=== PATIENT | male | born 1945 | race Caucasian/White ===

== ENCOUNTER 2018-03-03 23:41 | Inpatient (IN) ==
[2018-03-04] MEDS ORDERED: Ondansetron 4 MG/2 ML VIAL IVP ONE (00:01)
[2018-03-04] MEDS ORDERED: 0.9 % Sodium Chloride 1,000 ML IVC ONE (00:01)
[2018-03-04 00:33] LABS: Basophils % 0.3 %; Eosinophils # 0.2 K/mcL (0.0-0.6); Eosinophils % 2.4 %; Hematocrit 27.8 % (37.5-50.1); Hemoglobin 9.2 g/dL (12.9-16.9); Immature Granulocytes % 0.6 % (0-4); Lymphocytes # 0.6 K/mcL (0.6-4.6); Lymphocytes % 9.2 %; Mean Corpuscular HGB Conc 33.1 g/dL (31.6-35.5); Mean Corpuscular Hemoglobin 26.9 pg (28.0-33.3); Mean Corpuscular Volume 81.3 fL (83.0-100.0); Mean Platelet Volume 9.1 fL (9.4-12.4); Monocytes # 0.4 K/mcL (0.0-1.3); Monocytes % 5.5 %; Neutrophils # 5.5 K/mcL (1.6-8.9); Platelet Count 181 K/mcL (140-400); Red Blood Count 3.42 M/mcL (4.19-5.50); Red Cell Distribution Width 15.4 % (11.5-14.5)
[2018-03-04 00:43] LABS: Bilirubin,Urine Negative (Negative); Blood,Urine Negative (Negative); Clarity,Urine Clear (Clear); Glucose,Urine (UA) Normal (Normal); Ketones,Urine 40 mg/dL (Negative); Leukocyte Esterase,Urine Negative (Negative); Nitrite,Urine Negative (Negative); Protein,Urine Negative (Neg-Trace); Specific Gravity,Urine 1.025 (1.010-1.025); Urobilinogen,Urine Normal (Normal)
[2018-03-04 00:44] LABS: Color,Urine Light Yellow (Yellow)
[2018-03-04 00:56] LABS: Alanine Aminotransferase 13 Units/L (7-52); Albumin/Globulin Ratio 1.3 (1.1-2.2); Alkaline Phosphatase 84 Units/L (34-104); Aspartate Amino Transferase 19 Units/L (13-39); BUN/Creatinine Ratio 29 (6-26); Bilirubin,Direct 0.1 mg/dL (0.0-0.2); Bilirubin,Indirect 0.4 mg/dL (0.0-1.2); Bilirubin,Total 0.5 mg/dL (0.3-1.0); Blood Urea Nitrogen 20 mg/dL (8-23); Calcium 9.1 mg/dL (8.6-10.3); Carbon Dioxide 25 mEq/L (23-29); Chloride 87 mEq/L (98-107); Globulin 3.1 g/dL (2.4-3.5); Glucose 132 mg/dL (70-105); Osmolality,Calculated 254 (280-300); Potassium 4.5 mEq/L (3.5-5.1); Sodium 120 mEq/L (136-145); Total Protein 7.1 g/dL (6.4-8.9); Troponin I 0.04 ng/mL (< 0.04); eGFR For Non-African Americans > 60 (> 60)
--- NOTE | 2018-03-04 01:47 | Emergency Department Note ---
Disposition Clinical Impression: Acute hyponatremia Disposition: Admitted As Inpatient Condition: Fair Referrals: Annie Leary MD [Primary Care Provider] - Forms: ED Satisfaction Letter Time of Disposition: 03:29 Weakness HPI - General Chief complaint: ED Weakness Stated complaint: Weakness onset 2 days Time Seen by Provider: 03/03/18 23:56 Source: patient, family, EMS Mode of arrival: EMS Limitations: no limitations Nursing Notes Reviewed: Yes Vital Signs Reviewed: Yes - History of Present Illness Pt Subjective Complaint: generalized weakness/fatigue Onset (ago): day(s) (2 or 3 days) Duration: constant, gradually worsening Location: generalized Migration: none Pain Severity: none Pain Scale: 0 Improves with: none Worsens with: exertion Context: other (History of cancer, currently getting chemotherapy.) Associated symptoms: Reports: other (Patient notes some nausea. Otherwise denies any other symptoms.) - Related Data Home Medications Medication Instructions Recorded Confirmed Cabergoline 0.5 mg PO QWEEK 11/01/14 02/26/18 Lovastatin [Mevacor] 40 mg PO HS 11/01/14 02/26/18 Montelukast [Singulair] 10 mg PO DAILY 11/01/14 02/26/18 Metoprolol XL (24 HR) Succ [Toprol 25 mg PO DAILY 12/13/16 02/26/18 XL] Fluticasone Propionate Nasal 2 spray NS DAILY 05/06/17 02/26/18 [Flonase] Previous Rx's Medication Instructions Recorded Everolimus [Afinitor] 5 mg PO DAILY #30 tablet 01/31/18 Mupirocin [Bactroban Oint] 1 appl TP BID 7 Days tube 02/26/18 Sulfamethoxazole/Trimeth DS 1 each PO BID #14 tablet 02/26/18 [Bactrim DS] Allergies Allergy/AdvReac Type Severity Reaction Status Date / Time No Known Allergies Allergy Verified 02/26/18 11:50 All systems ED: reviewed and negative except as stated. Constitutional: Denies: fever, chills ENT ED: Denies: ear pain, throat pain, congestion Cardiovascular: Denies: chest pain Respiratory: Denies: dyspnea Gastrointestinal: Reports: nausea. Denies: abdominal pain, vomiting, diarrhea Musculoskeletal: Denies: back pain, neck pain Integumentary: Denies: rash Neurological: Reports: weakness (Generalized, nonfocal weakness). Denies: headache Past Medical History - Past Medical History Attestation: Yes The following information was validated with the patient. Source: patient, old records reviewed, obtained from family, nursing notes reviewed Medical history: Reports: cancer, hyperlipidemia, hypertension, other Surgical history: Reports: cancer surgery, cataract, herniorrhaphy, other Psychiatric history: Reports: no psych history - Social History Smoking Status: Never smoker Smokeless Tobacco Status: No Alcohol use: Reports: none Drug use: Reports: none Physical Exam - General Limitations: no limitations General appearance: alert, in no apparent distress - Head Head exam: atraumatic, normocephalic, normal inspection - Eye Eye exam: Present: normal appearance, PERRL, EOMI. Absent: scleral icterus, con junctival injection - ENT ENT exam: normal exam, normal oropharynx, mucous membranes moist, normal external ear exam - Neck Neck exam: Present: normal inspection, full ROM - Chest Chest inspection: Present: normal inspection, symmetric chest wall rise. Absent: tenderness - Respiratory Respiratory exam: Present: normal lung sounds bilaterally. Absent: respiratory distress, wheezes - Cardiovascular Cardiovascular exam: Present: regular rate, normal rhythm, normal heart sounds - Abdominal Exam Abdominal exam: Present: soft, Non-Tender, normal bowel sounds - Extremities Exam Extremities exam: Present: normal inspection. Absent: pedal edema - Neurological Exam Neurological exam: Present: alert, oriented X3. Absent: motor sensory deficit - Psychiatric Psychiatric exam: Present: normal affect, normal mood - Skin Skin exam: Present: warm, dry. Absent: rash Course Course Narrative: Patient presents with complaint of generalized weakness over the past couple of days. He has some nausea as well. He does not describe any other symptoms to point towards an infectious problem or other obvious issue. Physical examination does not point out anything either. There are no focal neurologic findings on physical examination. I suspect this to be a metabolic issue. Workup will be started. I will give him some IV fluids. Disposition will be based on diagnostic results and reevaluation. - Reevaluation(s) Reevaluation #1: Patient's sodium came back at 120. That certainly would explain generalized weakness. He is a lung cancer patient was taking oral chemotherapy agents. He will need to be admitted to the hospital. I will talk to the hospitalist here shortly. He did have a slight bump in his troponin at 0.04. I am not really sure the significance of that at this point. He will need to have his troponin is repeated. Time: 01:49 Reevaluation #2: Repeat troponin was still elevated but remained the same 0.04. So at this point I do not think this is cardiac cause of weakness I think that is all related to the hyponatremia. Poke with the hospitalist, Dr. Bermeo, and he is accepting the patient for admission to the hospital. Patient and family been made aware. Time: 03:28 - Consultations Consultation #1: Dr. Bermeo, hospitalist - I discussed case with the hospitalist. He is accepted the patient for admission. Time: 03:25 Vital Signs Temperature 97.9 F 03/03/18 23:45 Pulse Rate 81 03/03/18 23:45 Respiratory Rate 16 03/03/18 23:45 Blood Pressure 149/87 03/03/18 23:45 O2 Sat by Pulse Oximetry 98 03/03/18 23:45 Temperature 97.9 F 03/03/18 23:45 Pulse Rate 80 03/04/18 00:45 Respiratory Rate 16 03/04/18 00:45 Blood Pressure 154/81 03/04/18 00:45 O2 Sat by Pulse Oximetry 97 03/04/18 00:45 Oxygen Delivery Oxygen Delivery Room Air Weakness - Medical Records Medical records reviewed: Yes I reviewed the patient's medical records. - Lab Data Lab results reviewed: Yes I reviewed the patient's lab results. Result diagrams: 03/04/18 00:15 03/04/18 00:15 Lab Results 03/04/18 03/04/18 03/04/18 Range/Units 00:08 00:15 00:15 WBC 6.7 (4.3-11.1) K/mcL RBC 3.42 L (4.19-5.50) M/mcL Hgb 9.2 L (12.9-16.9) g/dL Hct 27.8 L (37.5-50.1) % MCV 81.3 L (83.0-100.0) fL MCH 26.9 L (28.0-33.3) pg MCHC 33.1 (31.6-35.5) g/dL RDW 15.4 H (11.5-14.5) % Plt Count 181 (140-400) K/mcL MPV 9.1 L (9.4-12.4) fL Immature Gran % 0.6 (0-4) % Seg Neutrophils % 82.0 % Lymphocytes % 9.2 % Monocytes % 5.5 % Eosinophils % 2.4 % Basophils % 0.3 % Neutrophils # 5.5 (1.6-8.9) K/mcL Lymphocytes # 0.6 (0.6-4.6) K/mcL Monocytes # 0.4 (0.0-1.3) K/mcL Eosinophils # 0.2 (0.0-0.6) K/mcL Basophils # 0.0 (0.0-0.2) K/mcL Sodium 120 L* (136-145) mEq/L Potassium 4.5 (3.5-5.1) mEq/L Chloride 87 L (98-107) mEq/L Carbon Dioxide 25 (23-29) mEq/L BUN 20 (8-23) mg/dL Creatinine 0.70 (0.70-1.30) mg/dL Est GFR ( Amer) > 60 (> 60) Est GFR (Non-Af Amer) > 60 (> 60) BUN/Creatinine Ratio 29 H (6-26) Glucose 132 H (70-105) mg/dL Calculated Osmolality 254 L (280-300) Lactic Acid (0.5-2.2) mmol/L Calcium 9.1 (8.6-10.3) mg/dL Total Bilirubin 0.5 (0.3-1.0) mg/dL Direct Bilirubin 0.1 (0.0-0.2) mg/dL Indirect Bilirubin 0.4 (0.0-1.2) mg/dL AST 19 (13-39) Units/L ALT 13 (7-52) Units/L Alkaline Phosphatase 84 (34-104) Units/L Troponin I 0.04 H* (< 0.04) ng/mL Serum Total Protein 7.1 (6.4-8.9) g/dL Albumin 4.0 (3.5-5.7) g/dL Globulin 3.1 (2.4-3.5) g/dL Albumin/Globulin Ratio 1.3 (1.1-2.2) Urine Color Light Yellow (Yellow) Urine Clarity Clear (Clear) Urine pH 7.0 (5.0-8.0) pH Units Ur Specific [place] 1.025 (1.010-1.025) Urine Protein Negative (Neg-Trace) mg/dL Urine Glucose (UA) Normal (Normal) mg/dL Urine Ketones 40 H (Negative) mg/dL Urine Blood Negative (Negative) Urine Nitrite Negative (Negative) Urine Bilirubin Negative (Negative) Urine Urobilinogen Normal (Normal) mg/dL Ur Leukocyte Esterase Negative (Negative) Ur Culture Indicated? NO (NO) 03/04/18 03/04/18 Range/Units 00:25 02:45 WBC (4.3-11.1) K/mcL RBC (4.19-5.50) M/mcL Hgb (12.9-16.9) g/dL Hct (37.5-50.1) % MCV (83.0-100.0) fL MCH (28.0-33.3) pg MCHC (31.6-35.5) g/dL RDW (11.5-14.5) % Plt Count (140-400) K/mcL MPV (9.4-12.4) fL Immature Gran % (0-4) % Seg Neutrophils % % Lymphocytes % % Monocytes % % Eosinophils % % Basophils % % Neutrophils # (1.6-8.9) K/mcL Lymphocytes # (0.6-4.6) K/mcL Monocytes # (0.0-1.3) K/mcL Eosinophils # (0.0-0.6) K/mcL Basophils # (0.0-0.2) K/mcL Sodium (136-145) mEq/L Potassium (3.5-5.1) mEq/L Chloride (98-107) mEq/L Carbon Dioxide (23-29) mEq/L BUN (8-23) mg/dL Creatinine (0.70-1.30) mg/dL Est GFR ( Amer) (> 60) Est GFR (Non-Af Amer) (> 60) BUN/Creatinine Ratio (6-26) Glucose (70-105) mg/dL Calculated Osmolality (280-300) Lactic Acid 1.5 (0.5-2.2) mmol/L Calcium (8.6-10.3) mg/dL Total Bilirubin (0.3-1.0) mg/dL Direct Bilirubin (0.0-0.2) mg/dL Indirect Bilirubin (0.0-1.2) mg/dL AST (13-39) Units/L ALT (7-52) Units/L Alkaline Phosphatase (34-104) Units/L Troponin I 0.04 H* (< 0.04) ng/mL Serum Total Protein (6.4-8.9) g/dL Albumin (3.5-5.7) g/dL Globulin (2.4-3.5) g/dL Albumin/Globulin Ratio (1.1-2.2) Urine Color (Yellow) Urine Clarity (Clear) Urine pH (5.0-8.0) pH Units Ur Specific [place] (1.010-1.025) Urine Protein (Neg-Trace) mg/dL Urine Glucose (UA) (Normal) mg/dL Urine Ketones (Negative) mg/dL Urine Blood (Negative) Urine Nitrite (Negative) Urine Bilirubin (Negative) Urine Urobilinogen (Normal) mg/dL Ur Leukocyte Esterase (Negative) Ur Culture Indicated? (NO) - Radiology Data Radiology results reviewed: Yes I reviewed the patient's radiology results. - EKG Data EKG attestation: Yes I reviewed and interpreted this EKG. EKG results narrative: Twelve-lead EKG performed at 20 3:52 PM. Ordered, reviewed and interpreted by ED physician showed sinus rhythm at a rate of 82. Normal axis. Good hour progression across precordium. No acute ischemic changes. Intervals are within normal limits.
[2018-03-04] MEDS ORDERED: Naloxone 0.4 MG/ML INJ IVP PRN (04:11)
[2018-03-04] MEDS: 0.9 % Sodium Chloride 1,000 ML IVC SCH ×2 (04:42→16:58)
[2018-03-04] MEDS: Metoprolol XL (24 HR) Succ 25 MG TAB.ER.24H PO SCH (08:27)
[2018-03-04] MEDS: Everolimus [Afinitor] 5 MG PO SCH (08:31)
[2018-03-04] MEDS: Fluticasone Propionate Nasal 50 MCG/SPRAY BOTTLE NS SCH (09:34)
--- NOTE | 2018-03-04 12:09 | Internal Med History&Physical ---
Date of Encounter: 03/04/18 Time of Encounter: 11:20 Assessment and Plan (1) Hyponatremia Current visit: Yes Status: Acute Possibly due to SIADH from pneumonia and/or malignancy. IV normal saline has been started. Labs will be monitored. (2) Microcytic anemia Current visit: Yes Status: Acute Anemia testing will be ordered. (3) Weakness Current visit: Yes Status: Acute PT and OT evaluations have been ordered. (4) Carcinoid tumor determined by biopsy of lung Current visit: No Status: Acute Chest CT will be done to monitor nodule progression and evaluate for pneumonia. Internal Medicine - H&P: HPI Chief complaint: Weakness, hyponatremia Admitted From: Emergency Dept Plans for Post Hospital Care: Home History of present illness: Mr. Romero is a 72 year old male who came to emergency room stating he had progressive weakness over the past 3 days. He reports while in the bathroom the evening prior to admission he became weak and gently let himself down to the floor. He was able to crawl from the bathroom to his bedroom and phone for help. He was brought to emergency room where evaluation showed significant hyponatremia and anemia. He was admitted to [facility] for ongoing care needs. He is hard of hearing and has a slight speech impediment. 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 He had XRT April and May 2014 and is felt to be in remission. He has been diagnosed with adenocarcinoma the prostate and is on Lupron injection every 3 months. He has metastatic atypical carcinoid of the lungs that is being treated by oncologist at [facility]. He has not responded significantly to attempted treatment for this. He has anemia that has progressively worsened in the past 3 months. Past Med Surg Social Fam HX - Past Medical History Medical history: cancer, hyperlipidemia, hypertension, other Additional medical history: MULTIPLE PULMONARY NODULES, cancer skin, throat, ton jocelyn, lung, prostate Psychiatric history: no psych history - Past Surgical History Surgical History: cancer surgery, cataract, herniorrhaphy, other Additional surgical history: colonoscopy, peg tube placement - Social History Smoking Status: Never smoker Smokeless Tobacco Status: No Alcohol use: none Drug use: none Internal Medicine - H&P: Meds Cabergoline 0.5 mg PO QWEEK 11/01/14 [History] Lovastatin [Mevacor] 40 mg PO HS 11/01/14 [History] Montelukast [Singulair] 10 mg PO DAILY 11/01/14 [History] Metoprolol XL (24 HR) Succ [Toprol XL] 25 mg PO DAILY 12/13/16 [History] Fluticasone Propionate Nasal [Flonase] 2 spray NS DAILY 05/06/17 [History] Everolimus [Afinitor] 5 mg PO DAILY #30 tablet 01/31/18 [Rx] Mupirocin [Bactroban Oint] 1 appl TP BID 7 Days tube 02/26/18 [Rx] Sulfamethoxazole/Trimeth DS [Bactrim DS] 1 each PO BID #14 tablet 02/26/18 [Rx] Allergy/AdvReac Type Severity Reaction Status Date / Time No Known Allergies Allergy Verified 02/26/18 11:50 All Systems PM: A 10-system review of systems was performed and is negative for pertinent findings except as documented above in the HPI. Review of systems: Gen.: He reports his weight has decreased approximately 25 pounds in the past year Cardiovascular: He has history of hypertension but denies TN heart failure angina DVT or pulmonary embolus Respiratory: He smoked from age [age] but denies chronic lung disease. He has metastatic atypical carcinoid in his lungs as per history of present illness. He does not use home oxygen. GI: He denies disorders of his liver gallbladder or exocrine pancreas : He had prostate CA as per history of present illness. He has frequent urination. He denies other kidney or bladder disorders. Neurologic: He denies known large distribution strokes or seizures. Endocrine: He has hyperlipidemia but denies diabetes or thyroid disease Hematology/oncology: As per history of present illness Psychiatric: He has feelings of depression but does not take medication at this time. He denies anxiety or other mental health issues. [place] skeletal: He has DJD and has had migratory arthralgias occasionally in the past few weeks. He denies gout - Constitutional Vitals: Temp Pulse Resp BP Pulse Ox 97.7 F 77 14 128/69 97 03/04/18 10:00 03/04/18 10:00 03/04/18 10:00 03/04/18 10:00 03/04/18 10:00 Exam: Gen.: He is a well-developed well-nourished male lying in bed who appears in no severe distress at present time HEENT: Head is atraumatic and normocephalic. Eyes: EOMI. There is no scleral icterus. Mouth: Mucosa is moist. Neck: He has surgical scar in his left neck from previous radical neck dissection. There is no thyromegaly or adenopathy noted. Heart: Regular without murmurs gallops or ectopics Lungs: No wheezes or crackles are heard. Abdomen: Soft and nontender. No masses or guarding are noted. A scar is in place in the left epigastric area from previous G-tube placement. Extremities: There is no cyanosis edema or clubbing noted. Dorsalis pedis and posterior tibial pulses are trace to 1+ palpable bilaterally. Neurologic: Mental status: He is talkative and able to answer most questions appropriately. He is hard of hearing. Cranial nerves: He has flattening of the right nasolabial fold and decreased movement of his right facial muscles inc luding the forehead. Left side of the face moves normally. Tongue is deformed from previous cancer surgery. EOMI. Motor: There is no pronator drift. Cerebellar: Finger to nose is intact bilaterally. Skin: Pale but warm and dry. Internal Med - H&P Results - Labs CBC & Chem 7: 03/04/18 00:15 03/04/18 00:15 Labs: Short CBC 03/04/18 Range/Units 00:15 WBC 6.7 (4.3-11.1) K/mcL Hgb 9.2 L (12.9-16.9) g/dL Hct 27.8 L (37.5-50.1) % Plt Count 181 (140-400) K/mcL Neutrophils # 5.5 (1.6-8.9) K/mcL BMP 03/04/18 00:15 Sodium 120 L* Potassium 4.5 Chloride 87 L Carbon Dioxide 25 BUN 20 Creatinine 0.70 Glucose 132 H Calcium 9.1 Cardiac Enzymes 03/04/18 03/04/18 03/04/18 Range/Units 00:15 02:45 08:53 Troponin I 0.04 H* 0.04 H* 0.06 H* (< 0.04) ng/mL Liver Function 03/04/18 Range/Units 00:15 Total Bilirubin 0.5 (0.3-1.0) mg/dL Direct Bilirubin 0.1 (0.0-0.2) mg/dL AST 19 (13-39) Units/L ALT 13 (7-52) Units/L Alkaline Phosphatase 84 (34-104) Units/L Albumin 4.0 (3.5-5.7) g/dL Urine 03/04/18 Range/Units 00:08 Urine Color Light Yellow (Yellow) Urine Clarity Clear (Clear) Urine pH 7.0 (5.0-8.0) pH Units Ur Specific [place] 1.025 (1.010-1.025) Urine Protein Negative (Neg-Trace) mg/dL Urine Glucose (UA) Normal (Normal) mg/dL - Impressions ITS Impressions Chest X-Ray 03/04/18 00:01 IMPRESSION: Progressive metastatic disease. The focal opacity in the mid left lung could represent the patient's primary malignancy or pneumonia. D/ / Mauri Arnold MD / Mauri Arnold MD Interpreting Provider: Mauri Arnold MD
[2018-03-04] MEDS ORDERED: Gadolinium Contrast Agent (WT Based) IV PRN (15:18)
[2018-03-05] MEDS ORDERED: *HR* LORazepam 2 MG/ML VIAL IVP PRN (01:29)
--- NOTE | 2018-03-05 02:56 | Internal Med Progress Note ---
Hospitalist Progress Note - Encounter Date of Encounter: 03/04/18 Time of Encounter: 23:45 - Exam Vitals: Temp Pulse Resp BP Pulse Ox 97.9 F 83 16 144/66 95 03/05/18 00:15 03/05/18 00:15 03/05/18 00:15 03/05/18 00:15 03/05/18 00:15 Exam: Confused elderly male history The bed they does not appear no rash or distress he has some mild weakness on the left in comparison to the right he is directable he is in no respiratory distress he appears to be agitated little bit confused his skin is without rash or lesions pale appearance chest station heart regular rate and rhythm abdomen soft positive bowel sounds extremities do show range of motion without pitting edema - Assessment and Plan (1) Intracranial mass Current Visit: Yes Status: Acute - Summary of Assessment and Plan Summary of Assessment and Plan: CT the head was done to rule out possibility of any interval change of the CT that was done earlier today had been notified by the radiologist is unchanged the problem is that the patient has metastatic lung liver and now is developing brain metastases and MRIs still recommended there are multiple lesions noted within the scalp as result the patient will be given sedation I spoke with Dr. Bermeo at this point he is a hospice palliative care individual because the ext ent of the cancer patient was given sedatives and now resting comfortably - Time Spent with Patient Total time spent is greater than 50% in coordination of care (as documented) at patient's floor/unit and/or counseling patient: 25 - 35 minutes Plan of Care Discussed with: other (family physician - Jean-Claude) Internal Medicine: Result - Labs CBC & Chem 7: 03/04/18 00:15 03/04/18 00:15 Labs: Cardiac Enzymes 03/04/18 03/04/18 03/04/18 Range/Units 02:45 08:53 14:46 Troponin I 0.04 H* 0.06 H* 0.06 H* (< 0.04) ng/mL 03/04/18 Range/Units 20:43 Troponin I 0.07 H* (< 0.04) ng/mL - Impressions Impressions Head CT 03/04/18 11:57 IMPRESSION: 3 relatively dense bilateral cerebral lesions, largest in the left frontal lobe, most compatible with metastatic disease. There is hemorrhage associated with left frontal subcortical lesion. Low-attenuation the left cerebellar hemisphere is also noted without discrete lesion. MRI would be helpful to further evaluate as it is a more sensitive study. Findings were discussed with the floor nurse caring for the patient Yanet Kaplan, at 2:55 pm on 03/04/2018. D/ / Caitlin Wiley Cha, MD / Caitlin Wiley Cha, MD Interpreting Provider: Caitlin Wiley Cha, MD Chest CT 03/04/18 12:15 IMPRESSION: 1. Progression of thoracic metastatic disease significantly enlarged left hilar mass/adenopathy encasing the left upper lobe bronchus. 2. New peripheral consolidation in the left upper lobe measuring nearly 82 x 48 mm 3. Multiple other pulmonary metastases scattered throughout the chest. The majority of these metastases are stable in size and distribution. Several (roughly 20%) of the lesions have slightly increased in size. 4. New thickening of the left adrenal gland concerning for an underlying metastasis. D/ : / 03/04/2018 14:45:27 Eamon Victor MD / lucia Interpreting Provider: Eamon Victor MD Head CT 03/05/18 00:03 IMPRESSION: Stable brain CT with no new hemorrhage or definite evidence for acute ischemia. Critical results were called by Dr. Mauri Arnold MD to Lisa Mileszier on 03/05/2018 at 01:21. D/ / Mauri Arnold MD / Mauri Arnold MD Interpreting Provider: Mauri Arnold MD Consult Discharge Plan - Plan Referrals: Annie Leary MD [Primary Care Provider] - 1 week
[2018-03-05] MEDS: *HR* LORazepam 2 MG/ML VIAL IVP PRN ×2 (03:55→08:25)
[2018-03-05 05:08] LABS: Basophils % 0.1 %; Eosinophils # 0.2 K/mcL (0.0-0.6); Eosinophils % 2.6 %; Hematocrit 25.8 % (37.5-50.1); Hemoglobin 8.8 g/dL (12.9-16.9); Immature Granulocytes % 0.5 % (0-4); Lymphocytes # 0.7 K/mcL (0.6-4.6); Lymphocytes % 9.7 %; Mean Corpuscular HGB Conc 34.1 g/dL (31.6-35.5); Mean Corpuscular Volume 79.1 fL (83.0-100.0); Mean Platelet Volume 8.9 fL (9.4-12.4); Monocytes # 0.6 K/mcL (0.0-1.3); Monocytes % 7.6 %; Neutrophils # 5.8 K/mcL (1.6-8.9); Platelet Count 188 K/mcL (140-400); Red Blood Count 3.26 M/mcL (4.19-5.50); Segmented Neutrophils % 79.5 %
[2018-03-05 05:33] LABS: BUN/Creatinine Ratio 22 (6-26); Blood Urea Nitrogen 12 mg/dL (8-23); Calcium 8.6 mg/dL (8.6-10.3); Carbon Dioxide 22 mEq/L (23-29); Chloride 86 mEq/L (98-107); Glucose 116 mg/dL (70-105); Magnesium 1.7 mg/dL (1.6-2.6); Osmolality,Calculated 241 (280-300); Potassium 3.8 mEq/L (3.5-5.1); Sodium 115 mEq/L (136-145); eGFR For Non-African Americans > 60 (> 60)
[2018-03-05] MEDS ORDERED: *HR* Enoxaparin 40 MG/0.4 ML SYRINGE SQ SCH (06:00)
[2018-03-05] MEDS ORDERED: Gadolinium Contrast Agent (WT Based) IV PRN (07:38)
[2018-03-05] MEDS ORDERED: Water for inj. (sterile) 10 ML IV ONE (08:12)
[2018-03-05 09:04] LABS: % Iron Saturation 10 % (20-55); Iron 29 mcg/dL (65-175); Transferrin 203 mg/dL (203-362)
[2018-03-05 09:22] LABS: Folate 12.2 ng/mL (3.0-16.0)
[2018-03-05 09:37] LABS: Ferritin 448 ng/mL (20-250)
[2018-03-05] MEDS ORDERED: *HR* LORazepam 2 MG/ML VIAL IVP ONE (09:48)
[2018-03-05 10:04] VITALS: BP 160/106
[2018-03-05] MEDS: Everolimus [Afinitor] 5 MG PO SCH (10:04)
[2018-03-05] MEDS: Metoprolol XL (24 HR) Succ 25 MG TAB.ER.24H PO SCH (10:05)
[2018-03-05] MEDS: Fluticasone Propionate Nasal 50 MCG/SPRAY BOTTLE NS SCH (10:11)
[2018-03-05] MEDS: *HR* LORazepam Oral Conc 2 MG/ML SL PRN ×2 (11:36→13:39)
[2018-03-05] MEDS: MORPHINE SUL Oral CONC 10 MG/0.5 ML ORAL.SYG SL PRN ×2 (11:36→13:39)
--- NOTE | 2018-03-05 16:13 | Electrocardiograph Report ---
[place] [id number] Test Date: 2018-03-03 Pat Name: Robert Romero Department: EDP-16 Room: [facility] Gender: M [employer] Assistant: : 1945 Requested By: Scar Morrison Order Number: [id number] Reading MD: Wes Castro Measurements Intervals [place] Rate: 82 P: 52 MT: 190 QRS: 22 QRSD: 95 T: 50 QT: 397 QTc: 464 Interpretive Statements Sinus rhythm Electronically Signed On 03-05-2018 16:12:00 EST by Wes Castro
--- NOTE | 2018-03-05 18:52 | Discharge Summary ---
Orders not resulted at time of discharge: Pending orders 03/04/18 00:15 Culture,Blood [BC] Stat Date of Encounter: 03/05/18 Time of Encounter: 09:30 - Discharge Diagnosis (1) Multiple metastatic carcinoid tumors Priority: Primary Status: Acute (2) Carcinoid tumor determined by biopsy of lung Priority: Secondary Status: Acute (3) Hyponatremia Priority: Secondary Status: Acute (4) Microcytic anemia Priority: Secondary Status: Acute (5) Weakness Priority: Secondary Status: Acute Hospital course: Mr. Romero is a 72 year old male who came to emergency room stating he had progressive weakness over the past 3 days. He reports while in the bathroom the evening prior to admission he became weak and gently let himself down to the floor. He was able to crawl from the bathroom to his bedroom and phone for help. He was brought to emergency room where evaluation showed significant hyponatremia and anemia. He was admitted to [facility] for ongoing care needs. Initial orders were written by the emergency room physician. I saw him on March 04 and performed the history and physical. Chest and head CT were done to further evaluate hyponatremia and known carcinoid tumor with lung metastases. The head CT showed 3 relatively dense bilateral cerebral lesions largest in the left frontal lobe most compatible with metastatic disease. There was hemorrhage seen with a left frontal subcortical metastatic lesion. Chest CT showed progressive thoracic metastases. Several of these were significantly enlarged compared to November [address] There was left hilar mass and adenopathy encasing the left upper lobe bronchus with new peripheral consolidation in left upper lobe. There was thickening of the left adrenal gland concerning for underlying metastases. I had a long discussion with the patient's the morning of March [address] findings. She wished him to be transitioned to hospice care without further aggressive intervention. Arrangements for this were completed the afternoon of March 05. - Time Spent with Patient Total time spent providing and/or coordinating discharge services: - Discharge Medications Home Medications: Cabergoline 0.5 mg PO QWEEK 11/01/14 [History] Lovastatin [Mevacor] 40 mg PO HS 11/01/14 [History] Montelukast [Singulair] 10 mg PO DAILY 11/01/14 [History] Metoprolol XL (24 HR) Succ [Toprol XL] 25 mg PO DAILY 12/13/16 [History] Fluticasone Propionate Nasal [Flonase] 2 spray NS DAILY 05/06/17 [History] Everolimus [Afinitor] 5 mg PO DAILY #30 tablet 01/31/18 [Rx] Sulfamethoxazole/Trimeth DS [Bactrim DS] 1 each PO BID #14 tablet 02/26/18 [Rx] Allergies/Adverse Reactions: Allergy/AdvReac Type Severity Reaction Status Date / Time No Known Allergies Allergy Verified 02/26/18 11:50 Date of admission: 03/04/18 12:18 Primary care physician: Annie Leary Consults: 03/04/18 04:57 Consult to Nutrition [CONS] Routine Comment: Consulting Provider: NUTRITION Reason for Dietary Consult: MST Score 03/04/18 12:02 Consult to Occupational Therapy [CONS] Routine Comment: Evaluate, develop and implement POC Reason for Consult: Weakness Does patient have active BEDREST order?: No Is patient medically & hemodynamically stable?: Yes Patient assessed for mobility or mobilized this visit?: Yes Consult to Physical Therapy [CONS] Routine Comment: Evaluate, develop and implement POC Reason for Consult: Weakness Does patient have active BEDREST order?: No Is patient medically & hemodynamically stable?: Yes Patient assessed for mobility or mobilized this visit?: Yes - Constitutional Vitals: Temp Pulse Resp BP Pulse Ox 97.5 F L 98 20 160/106 96 03/05/18 03:43 03/05/18 09:30 03/05/18 09:30 03/05/18 09:30 03/05/18 09:30 - Patient Status Disposition: Hospice - Medical Facility Condition: Fair - Discharge Instructions
== END 2018-03-05 19:32 | disposition hospice, inpatient (51) | DRG 844 ==
LOC: EMEROOPIK 23:41 → INPPIK 23:41
PROVIDERS: ADMIT Internal Medicine; ATTEND Internal Medicine

== ENCOUNTER 2018-03-05 16:29 | Inpatient (IN) ==
[2018-03-05] MEDS ORDERED: *HR* Morphine 2 MG/ML SYRINGE IVP PRN (20:54)
[2018-03-05] MEDS ORDERED: Atropine 1% Opth Drops 100 DROP/5 ML BOTTLE SL PRN (20:55)
[2018-03-05] MEDS: MORPHINE SUL Oral CONC 10 MG/0.5 ML ORAL.SYG SL PRN (21:47)
[2018-03-05] MEDS: *HR* LORazepam 2 MG/ML VIAL IVP PRN (22:04)
[2018-03-05] MEDS: Haloperidol Lactate 5 MG/ML VIAL IVP PRN (22:31)
[2018-03-06] MEDS: *HR* LORazepam 2 MG/ML VIAL IVP PRN ×4 (03:23→17:03)
[2018-03-06] MEDS: MORPHINE SUL Oral CONC 10 MG/0.5 ML ORAL.SYG SL PRN ×3 (03:23→18:43)
[2018-03-06] MEDS: Haloperidol Lactate 5 MG/ML VIAL IVP PRN ×2 (03:38→18:59)
[2018-03-06] MEDS ORDERED: *HR* LORazepam 2 MG/ML VIAL IVP ONE (04:19)
--- NOTE | 2018-03-06 10:03 | Internal Med Progress Note ---
Date of Encounter: 03/06/18 Time of Encounter: 09:50 - Assessment and plan (1) Multiple metastatic carcinoid tumors Current Visit: No Status: Acute Assessment and plan: Continue comfort care measures. Add IV Valium twice daily to lessen agitation. - Subjective Interval history: March 06. He was discharged to inpatient hospice yesterday evening after acute-care stay at [facility]. Workup on March 04 showed progression of known carcinoid tumor lung metastases and head CT showed metastatic lesions in the brain with at least 1 showing hemorrhagic complication. He had left upper lobe infiltrate from mass encasing the left bronchus. He has not responded to meaningfully to family since being admitted to hospice last evening. - Constitutional Vitals: Temp Pulse Resp BP Pulse Ox 98.0 F 70 16 73/41 96 03/06/18 07:17 03/06/18 07:17 03/06/18 07:17 03/06/18 07:17 03/06/18 07:17 Exam: He is lying in bed and does not open his eyes to conversation. He is moving his arms and legs in nonmeaningful pattern. I reviewed his vitals and medications. Consult Discharge Plan - Plan Referrals: NONE,PCP [Primary Care Provider] - 1 week
[2018-03-06] MEDS: Atropine Sulfate 1% 40 DROP/2 ML BOTTLE SL PRN (12:48)
[2018-03-07] MEDS: Atropine Sulfate 1% 40 DROP/2 ML BOTTLE SL PRN ×2 (02:12→15:51)
[2018-03-07] MEDS: *HR* LORazepam 2 MG/ML VIAL IVP PRN ×3 (02:12→21:48)
[2018-03-07] MEDS: MORPHINE SUL Oral CONC 10 MG/0.5 ML ORAL.SYG SL PRN ×3 (02:13→21:48)
[2018-03-07] MEDS: Acetaminophen 650 MG RECTAL SUPP RC PRN (08:58)
--- NOTE | 2018-03-07 09:32 | Internal Med Progress Note ---
Date of Encounter: 03/07/18 Time of Encounter: 09:25 - Assessment and plan (1) Multiple metastatic carcinoid tumors Current Visit: No Status: Acute Assessment and plan: March 06. Continue comfort care measures. Add IV Valium twice daily to lessen agitation. March 07. 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 IV Valium not available so he is receiving rectal Valium. - Subjective Interval history: March 06. He was discharged to inpatient hospice yesterday evening after acute-care stay at [facility]. Workup on March 04 showed progression of known carcinoid tumor lung metastases and head CT showed metastatic lesions in the brain with at least 1 showing hemorrhagic complication. He had left upper lobe infiltrate from mass encasing the left bronchus. He has not responded to meaningfully to family since being admitted to hospice last evening. March 07. No new problems have arisen. - Constitutional Vitals: Temp Pulse Resp BP Pulse Ox 101.7 F H 151 24 90/54 91 03/07/18 06:54 03/07/18 06:54 03/07/18 06:54 03/07/18 06:54 03/07/18 06:54 Exam: He is lying in bed and appears in no acute distress. He is moving his arms non- purposefully. His skin is pale. I reviewed his medications and vitals. I spoke with his who was in the room Consult Discharge Plan - Plan Referrals: NONE,PCP [Primary Care Provider] - 1 week
[2018-03-08] MEDS: MORPHINE SUL Oral CONC 10 MG/0.5 ML ORAL.SYG SL PRN ×4 (00:25→18:28)
[2018-03-08] MEDS: Haloperidol Lactate 5 MG/ML VIAL IVP PRN ×2 (00:25→16:59)
[2018-03-08] MEDS: Acetaminophen 650 MG RECTAL SUPP RC PRN (06:53)
[2018-03-08] MEDS: *HR* LORazepam 2 MG/ML VIAL IVP PRN (15:07)
--- NOTE | 2018-03-08 18:05 | Internal Med Progress Note ---
Date of Encounter: 03/08/18 Time of Encounter: 17:55 - Assessment and plan (1) Multiple metastatic carcinoid tumors Current Visit: No Status: Acute Assessment and plan: March 06. Continue comfort care measures. Add IV Valium twice daily to lessen agitation. March 07. 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 IV Valium not available so he is receiving rectal Valium. March 08. 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 IV access has been lost. Change Ativan to oral concentrate SL. - Subjective Interval history: March 06. He was discharged to inpatient hospice yesterday evening after acute-care stay at [facility]. Workup on March 04 showed progression of known carcinoid tumor lung metastases and head CT showed metastatic lesions in the brain with at least 1 showing hemorrhagic complication. He had left upper lobe infiltrate from mass encasing the left bronchus. He has not responded to meaningfully to family since being admitted to hospice last evening. March 07. No new problems have arisen. March 08. No new problems have arisen. - Constitutional Vitals: Temp Pulse Resp BP Pulse Ox 102.2 F H 148 20 66/46 86 03/08/18 06:47 03/08/18 06:47 03/08/18 06:47 03/08/18 06:47 03/08/18 06:47 Exam: He is resting comfortably in bed. He moves his arms and legs minimally randomly. Heart is tachycardic with rate approximately 156/m. Lungs are clear anteriorly. Abdomen is soft and nontender. No masses or guarding are noted. Extremity show no edema. Consult Discharge Plan - Plan Referrals: NONE,PCP [Primary Care Provider] - 1 week
[2018-03-08] MEDS ORDERED: Haloperidol Lactate 5 MG/ML VIAL IM PRN (18:15)
[2018-03-08] MEDS: *HR* LORazepam Oral Conc 2 MG/ML SL PRN (18:25)
[2018-03-08] MEDS: Atropine Sulfate 1% 40 DROP/2 ML BOTTLE SL PRN (22:38)
[2018-03-09] MEDS: Atropine Sulfate 1% 40 DROP/2 ML BOTTLE SL PRN ×3 (03:55→22:24)
[2018-03-09] MEDS: *HR* LORazepam Oral Conc 2 MG/ML SL PRN ×2 (07:37→16:37)
[2018-03-09] MEDS: MORPHINE SUL Oral CONC 10 MG/0.5 ML ORAL.SYG SL PRN ×3 (07:37→16:21)
--- NOTE | 2018-03-09 15:41 | Internal Med Progress Note ---
Date of Encounter: 03/09/18 Time of Encounter: 15:32 - Assessment and plan (1) Multiple metastatic carcinoid tumors Current Visit: No Status: Acute Assessment and plan: March 06. Continue comfort care measures. Add IV Valium twice daily to lessen agitation. March 07. 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 IV Valium not available so he is receiving rectal Valium. March 08. 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 IV access has been lost. Change Ativan to oral concentrate SL. March 09. 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 - Subjective Interval history: March 06. He was discharged to inpatient hospice yesterday evening after acute-care stay at [facility]. Workup on March 04 showed progression of known carcinoid tumor lung metastases and head CT showed metastatic lesions in the brain with at least 1 showing hemorrhagic complication. He had left upper lobe infiltrate from mass encasing the left bronchus. He has not responded to meaningfully to family since being admitted to hospice last evening. March 07. No new problems have arisen. March 08. No new problems have arisen. March 09. No new problems have arisen. - Constitutional Vitals: Temp Pulse Resp BP Pulse Ox 97.1 F L 164 20 105/67 85 03/09/18 07:01 03/09/18 07:01 03/09/18 07:01 03/09/18 07:01 03/09/18 07:01 Exam: He is lying in bed with no meaningful response to voice or light touch. Heart is tachycardic at rate approximately 152/m. Lungs are clear anteriorly. Consult Discharge Plan - Plan Referrals: NONE,PCP [Primary Care Provider] - 1 week
[2018-03-10] MEDS: *HR* LORazepam Oral Conc 2 MG/ML SL PRN ×3 (04:14→12:51)
[2018-03-10] MEDS: Atropine Sulfate 1% 40 DROP/2 ML BOTTLE SL PRN ×2 (04:14→13:54)
[2018-03-10] MEDS: MORPHINE SUL Oral CONC 10 MG/0.5 ML ORAL.SYG SL PRN ×3 (04:15→13:45)
--- NOTE | 2018-03-10 11:21 | Internal Med Progress Note ---
Date of Encounter: 03/10/18 Time of Encounter: 11:14 - Assessment and plan (1) Multiple metastatic carcinoid tumors Current Visit: No Status: Acute Assessment and plan: March 06. Continue comfort care measures. Add IV Valium twice daily to lessen agitation. March 07. 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 IV Valium not available so he is receiving rectal Valium. March 08. 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 IV access has been lost. Change Ativan to oral concentrate SL. March 09. 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 March 10. Suspect survival will not exceed 24 hours. - Subjective Interval history: March 06. He was discharged to inpatient hospice yesterday evening after acute-care stay at [facility]. Workup on March 04 showed progression of known carcinoid tumor lung metastases and head CT showed metastatic lesions in the brain with at least 1 showing hemorrhagic complication. He had left upper lobe infiltrate from mass encasing the left bronchus. He has not responded to meaningfully to family since being admitted to hospice l ast evening. March 07. No new problems have arisen. March 08. No new problems have arisen. March 09. No new problems have arisen. March 10. No new problems have arisen. - Constitutional Vitals: Temp Pulse Resp BP Pulse Ox 98.8 F 167 16 85/54 88 03/10/18 07:00 03/10/18 07:00 03/10/18 07:00 03/10/18 07:00 03/10/18 07:00 Exam: He is lying in bed. Respirations are slow and somewhat irregular. Heart is tachycardic with rate approximately 172/m. Lungs are clear anteriorly. I reviewed his vitals. Consult Discharge Plan - Plan Referrals: NONE,PCP [Primary Care Provider] - 1 week
[2018-03-10 20:32] VITALS: BP 47/37
[2018-03-10] MEDS ORDERED: Atropine 1% Opth Drops 100 DROP/5 ML BOTTLE SL PRN (21:00)
--- NOTE | 2018-03-11 10:11 | Discharge Summary ---
Date of Encounter: 03/11/18 Time of Encounter: 09:55 - Discharge Diagnosis (1) Multiple metastatic carcinoid tumors Priority: Primary Status: Acute Hospital course: Mr. Strauss is a 72 year old male who was discharged to inpatient hospice 03/05/2018 after acute-care stay at [facility]. Workup on March 04 showed progression of known carcinoid tumor lung metastases and head CT showed metastatic lesions in the brain with at least one showing hemorrhagic complication. He had left upper lobe infiltrate from mass encasing the left bronchus. He was admitted to hospice and receive comfort measures. He had gradual decline in responsiveness and interactions with family and staff. At 2328 on 03/10/2018 he was found without pulse and respirations and was pronounced . No resuscitative efforts were done as per advanced directives. - Time Spent with Patient Total time spent providing and/or coordinating discharge services: - Discharge Medications Home Medications: Cabergoline 0.5 mg PO QWEEK 11/01/14 [History] Lovastatin [Mevacor] 40 mg PO HS 11/01/14 [History] Montelukast [Singulair] 10 mg PO DAILY 11/01/14 [History] Metoprolol XL (24 HR) Succ [Toprol XL] 25 mg PO DAILY 12/13/16 [History] Fluticasone Propionate Nasal [Flonase] 2 spray NS DAILY 05/06/17 [History] Everolimus [Afinitor] 5 mg PO DAILY #30 tablet 01/31/18 [Rx] Sulfamethoxazole/Trimeth DS [Bactrim DS] 1 each PO BID #14 tablet 02/26/18 [Rx] Allergies/Adverse Reactions: Allergy/AdvReac Type Severity Reaction Status Date / Time No Known Allergies Allergy Verified 02/26/18 11:50 Date of admission: 03/05/18 20:26 Primary care physician: PCP NONE Consults: 03/05/18 22:41 Consult to Nutrition [CONS] Routine Comment: Consulting Provider: NUTRITION Reason for Dietary Consult: MST Score - Constitutional Vitals: Temp Pulse Resp BP Pulse Ox 99.1 F 157 7 47/37 80 03/10/18 20:31 03/10/18 20:31 03/10/18 20:31 03/10/18 20:31 03/10/18 20:31 - Patient Status Disposition: - Discharge Instructions Follow Up With: NONE,PCP [Primary Care Provider] - 1 week
== END 2018-03-10 23:28 | disposition expired | DRG 951 ==
LOC: INPPIK 20:26
PROVIDERS: ADMIT Internal Medicine; ATTEND Internal Medicine